=== PATIENT | female | born 1990 | race Caucasian/White ===

== ENCOUNTER → 2019-12-27 | Outpatient (CLI) | payer BC ==
[~2019-12-27] MED LIST: IBUP800 PO; ONDA4ODT MM; OXYACE5T PO; Verotin-Gr Cap1 EACH PO
== END | disposition home or self-care (01) ==
LOC: LAB 18:38 → LAB SHORT 18:38
DX: K13.0 Diseases of lips (principal)
CPT/HCPCS: 87070; 87077; 87186; 87205

== ENCOUNTER → 2020-10-30 | Outpatient (CLI) | payer BC | END | disposition home or self-care (01) | LOC: LAB SHORT 10:00 → LAB 10:00 | PROVIDERS: Obstetrics & Gynecology | DX: N92.0 Excessive and frequent menstruation with regular cycle (principal) | CPT/HCPCS: G0123 ==